=== PATIENT | male | born 1940 | race Caucasian/White ===

== ENCOUNTER 2016-06-14 19:10 | Emergency (ER) | payer OTHER ==
[~2016-06-14] VITALS: Ht 188 cm; Wt 95.3 kg
[2016-06-14 19:25] VITALS: BP_SYST 107
--- NOTE | 2016-06-14 19:30 | NUR ---
Placed in room 4 . Placed on bobbin fixer, blood pressure machine and pulse oximeter. To gown for exam. Side rails up. Report given to Annika GONZALEZ.
--- NOTE | 2016-06-14 19:44 | NUR ---
Pt came into the ER in stable condition. Pt c/o abd pain 10/03. Pt stated that he has intermittent dizziness. -n/v/d -sob -chest pain. No acute distress noted at this time, will continue to monitor
--- NOTE | 2016-06-14 20:01 | NUR ---
# 20 gauge angiocath placed to LEFT AC. Use of asceptic technique. Opsite placed over site. Blood return noted. Blood for lab drawn from site. Flushed with 10 cc of normal saline. No evidence of infiltration noted. Patient tolerated well.
[2016-06-14] MEDS ORDERED: NS 500 ML IV ONE (20:15)
[2016-06-14 20:47] LABS: BASOPHILS % (AUTO) 0.2 % (0.0-2.0); EOSINOPHILS % (AUTO) 0.1 % (0.0-4.0); HEMATOCRIT 43.8 % (36-54); HEMOGLOBIN 15.1 g/dL (14.0-18.0); LYMPHOCYTES # (AUTO) 0.7 K/uL (1.0-5.5); LYMPHOCYTES % (AUTO) 6.5 % (20.5-51.5); MEAN CORPUSCULAR HEMOGLOBIN 29 pg (27-31); MEAN CORPUSCULAR HGB CONC 34 % (32-36); MEAN CORPUSCULAR VOLUME 84 fL (79.0-98.0); MONOCYTES # (AUTO) 0.8 K/uL (0.0-1.0); MONOCYTES % (AUTO) 7.3 % (1.7-9.3); NEUTROPHILS # (AUTO) 8.9 K/uL (1.8-7.7); NEUTROPHILS % (AUTO) 85.9 % (40.0-70.0); PLATELET COUNT (AUTO) 147 K/uL (130-430); RED BLOOD CELL COUNT(AUTO) 5.19 MIL/uL (4.2-6.2); RED CELL DISTRIBUTION WIDTH 12.4 % (9.0-15.0); WHITE BLOOD COUNT (AUTO) 10.4 K/uL (4.8-10.8)
[2016-06-14 20:50] LABS: INR 1.2 (0.80-1.20); PROTHROMBIN TIME 12.6 SECS (9.5-12.5)
[2016-06-14 20:52] LABS: ALANINE AMINOTRANSFERASE 241 U/L (12-78); ALBUMIN 3.5 g/dL (3.4-4.8); ANION GAP 11 (5-15); ASPARTATE AMINOTRANSFERASE 71 U/L (10-37); CALCIUM 8.9 mg/dL (8.4-11.0); CHLORIDE 101 mmol/L (98-107); CREATININE 1.51 mg/dL (0.55-1.30); GLUCOSE 153 mg/dL (70-99); POTASSIUM 3.1 mmol/L (3.5-5.1); SODIUM SERUM 139 mmol/L (136-145); TOTAL BILIRUBIN 3.7 mg/dL (0.0-1.0); TOTAL PROTEIN, SERUM 6.9 g/dL (6.4-8.3); UREA NITROGEN, BLOOD 24 mg/dL (8-21)
[2016-06-14] MEDS ORDERED: POTASSIUM CHLORIDE 10 MEQ TAB.PRT.SR PO ONE (21:30)
[2016-06-14 22:52] VITALS: BP_SYST 109
--- NOTE | 2016-06-14 22:52 | NUR ---
Patient given written and verbal discharge instructions and verbalizes understanding. ER MD MCCORMACK discussed with patient the results and treatment provided. Patient in stable condition. ID arm band removed. IV catheter removed intact and dressing applied, no active bleeding. Rx of ASPIRIN given. Patient educated on pain management and to follow up with PMD. Pain Scale 0/10. Opportunity for questions provided and answered.
== END 2016-06-14 22:52 | disposition home or self-care (01) ==
LOC: SED 19:10
DX: R10.9 Unspecified abdominal pain (principal); R53.1 Weakness; R42 Dizziness and giddiness; R55 Syncope and collapse; I10 Essential (primary) hypertension
CPT/HCPCS: 36415; 74020; 74176; 80053; 84484; 85025; 85379; 85610; 85730; 96360; 99285; J7040

== ENCOUNTER 2021-10-31 12:05 | Inpatient (IN) | payer OTHER ==
[~2021-10-31] VITALS: Ht 188 cm; Wt 90.3 kg
[2021-10-31 12:08] VITALS: BP_SYST 116
[2021-10-31] MEDS ORDERED: cefTRIAXone 1 GM IVPB PREMIX 50 ML IV ONE (12:30)
[2021-10-31] MEDS ORDERED: NACL 0.9% 2,700 ML IV ONE (12:30)
[2021-10-31] MEDS ORDERED: METO25TA3 PO (12:40)
[2021-10-31] MEDS ORDERED: ASPI-859 PO (12:40)
[2021-10-31] MEDS ORDERED: [UNRECOGNIZED DRUG - OTHER] (12:40)
[2021-10-31] MEDS ORDERED: FURO-150 PO (12:40)
[2021-10-31] MEDS ORDERED: CYAN100T44 PO (12:40)
[2021-10-31] MEDS ORDERED: LIP80 PO (12:40)
[2021-10-31] MEDS ORDERED: IRBE150T48 PO (12:40)
[2021-10-31] MEDS ORDERED: VITD2000 PO (12:40)
[2021-10-31] MEDS ORDERED: POTA-197 PO (12:40)
[2021-10-31 13:01] LABS: BASOPHILS % (AUTO) 0.5 % (0.0-2.0); EOSINOPHILS % (AUTO) 0.6 % (0.0-4.0); HEMATOCRIT 38.3 % (36-54); HEMOGLOBIN 13.1 g/dL (14.0-18.0); LYMPHOCYTES # (AUTO) 0.9 K/uL (1.0-5.5); LYMPHOCYTES % (AUTO) 10.7 % (20.5-51.5); MEAN CORPUSCULAR HEMOGLOBIN 29 pg (27-31); MEAN CORPUSCULAR HGB CONC 34 % (32-36); MEAN CORPUSCULAR VOLUME 84 fL (79.0-98.0); MONOCYTES # (AUTO) 0.5 K/uL (0.0-1.0); MONOCYTES % (AUTO) 6.5 % (1.7-9.3); NEUTROPHILS # (AUTO) 6.8 K/uL (1.8-7.7); NEUTROPHILS % (AUTO) 81.7 % (40.0-70.0); PLATELET COUNT (AUTO) 171 K/uL (130-430); RED BLOOD CELL COUNT(AUTO) 4.57 MIL/uL (4.2-6.2); RED CELL DISTRIBUTION WIDTH 14.6 % (9.0-15.0); WHITE BLOOD COUNT (AUTO) 8.3 K/uL (4.8-10.8)
[2021-10-31 13:06] LABS: ANION GAP 9 (5-15); CALCIUM 8.9 mg/dL (8.4-11.0); CHLORIDE 105 mmol/L (98-107); CREATININE 1.36 mg/dL (0.55-1.30); GLUCOSE 165 mg/dL (70-99); SODIUM SERUM 141 mmol/L (136-145); UREA NITROGEN, BLOOD 25 mg/dL (8-21)
[2021-10-31 13:12] LABS: ALANINE AMINOTRANSFERASE 31 U/L (12-78); ALBUMIN 3.1 g/dL (3.4-4.8); ASPARTATE AMINOTRANSFERASE 20 U/L (10-37); TOTAL BILIRUBIN 1.9 mg/dL (0.0-1.0)
[2021-10-31 16:00] VITALS: BP_SYST 131
[2021-10-31 16:55] VITALS: BP_SYST 131
[2021-10-31 20:00] VITALS: BP_SYST 103
[2021-10-31 23:04] VITALS: BP_SYST 101
[2021-11-01 01:18] VITALS: BP_SYST 109
[2021-11-01 01:47] VITALS: BP_SYST 109
[2021-11-01 08:00] VITALS: BP_SYST 116
[2021-11-01] MEDS: FUROSEMIDE 40 MG/4 ML VIAL IVP SCH ×2 (09:52→22:10)
[2021-11-01] MEDS ORDERED: ACETAMINOPHEN 325 MG TABLET PO PRN (11:45)
[2021-11-01] MEDS ORDERED: NALOXONE HCL 0.4 MG/ML AMP (NARCAN) IVP PRN ×2 (11:45)
[2021-11-01] MEDS ORDERED: HYDROcodone/ACETAMIN 5-325 MG TAB (NORCO/ VICODIN) PO PRN (11:45)
[2021-11-01] MEDS ORDERED: HYDROcodone/ACETAMIN 10-325 MG TAB PO PRN (11:45)
[2021-11-01 12:00] VITALS: BP_SYST 115
[2021-11-01] MEDS: cefTRIAXone 1 GM IVPB PREMIX 50 ML IV SCH (13:11)
[2021-11-01] MEDS: D5/0.45 NS 1,000 ML IV SCH ×2 (13:11→22:34)
[2021-11-01 17:00] VITALS: BP_SYST 121
[2021-11-01 20:00] VITALS: BP_SYST 106
[2021-11-01] MEDS ORDERED: FUROSEMIDE 20 MG TABLET PO SCH (21:00)
[2021-11-01] MEDS: ATORVASTATIN 20 MG TABLET PO SCH (22:00)
[2021-11-01] MEDS: METOPROLOL SUCCINATE 25 MG TAB.SR.24H (TOPROL XL) PO SCH (22:09)
[2021-11-02] VITALS: BP_SYST 125
[2021-11-02 06:21] LABS: BASOPHILS # (AUTO) 0.1 K/uL (0.0-0.2); BASOPHILS % (AUTO) 0.5 % (0.0-2.0); EOSINOPHILS % (AUTO) 0.2 % (0.0-4.0); HEMATOCRIT 40.8 % (36-54); HEMOGLOBIN 13.9 g/dL (14.0-18.0); LYMPHOCYTES # (AUTO) 1.5 K/uL (1.0-5.5); LYMPHOCYTES % (AUTO) 14.7 % (20.5-51.5); MEAN CORPUSCULAR HEMOGLOBIN 29 pg (27-31); MEAN CORPUSCULAR HGB CONC 34 % (32-36); MEAN CORPUSCULAR VOLUME 84 fL (79.0-98.0); MONOCYTES # (AUTO) 0.7 K/uL (0.0-1.0); MONOCYTES % (AUTO) 7.2 % (1.7-9.3); NEUTROPHILS # (AUTO) 7.8 K/uL (1.8-7.7); NEUTROPHILS % (AUTO) 77.4 % (40.0-70.0); PLATELET COUNT (AUTO) 181 K/uL (130-430); RED BLOOD CELL COUNT(AUTO) 4.85 MIL/uL (4.2-6.2); RED CELL DISTRIBUTION WIDTH 14.1 % (9.0-15.0); WHITE BLOOD COUNT (AUTO) 10.1 K/uL (4.8-10.8)
[2021-11-02 06:49] LABS: ANION GAP 11 (5-15); CALCIUM 8.9 mg/dL (8.4-11.0); CHLORIDE 104 mmol/L (98-107); CREATININE 1.37 mg/dL (0.55-1.30); GLUCOSE 154 mg/dL (70-99); PHOSPHORUS 4.3 mg/dL (2.7-4.5); POTASSIUM 3.7 mmol/L (3.5-5.1); SODIUM SERUM 141 mmol/L (136-145); UREA NITROGEN, BLOOD 34 mg/dL (8-21)
[2021-11-02 08:00] VITALS: BP_SYST 119
[2021-11-02] MEDS: D5/0.45 NS 1,000 ML IV SCH ×2 (08:00→18:00)
[2021-11-02] MEDS: POTASSIUM CHLORIDE 20 MEQ TAB.PRT.SR PO SCH (09:35)
[2021-11-02] MEDS: CYANOCOBALAMIN 1000 mCg TABLET PO SCH (09:35)
[2021-11-02] MEDS: CHOLECALCIFEROL (VITAMIN D3) 2,000 UNIT TABLET PO SCH (09:35)
[2021-11-02] MEDS: LOSARTAN POTASSIUM 50 MG TABLET (COZAAR) PO SCH (09:36)
[2021-11-02] MEDS: FUROSEMIDE 40 MG/4 ML VIAL IVP SCH ×2 (09:37→21:25)
[2021-11-02] MEDS: ASPIRIN 81 MG TABLET(ECOTRIN) PO SCH (09:37)
[2021-11-02 12:00] VITALS: BP_SYST 124
[2021-11-02] MEDS: cefTRIAXone 1 GM IVPB PREMIX 50 ML IV SCH (14:37)
[2021-11-02] MEDS: ONDANSETRON HCL 4 MG/2 ML VIAL IVP PRN (15:33)
[2021-11-02 16:00] VITALS: BP_SYST 118
[2021-11-02 20:00] VITALS: BP_SYST 104
[2021-11-02] MEDS: METOPROLOL SUCCINATE 25 MG TAB.SR.24H (TOPROL XL) PO SCH (21:00)
[2021-11-02] MEDS: ATORVASTATIN 20 MG TABLET PO SCH (21:21)
[2021-11-03] MEDS: D5/0.45 NS 1,000 ML IV SCH ×2 (00:18→14:48)
[2021-11-03 00:44] VITALS: BP_SYST 108
[2021-11-03 04:00] VITALS: BP_SYST 100
[2021-11-03 06:34] LABS: BASOPHILS # (AUTO) 0.1 K/uL (0.0-0.2); BASOPHILS % (AUTO) 0.7 % (0.0-2.0); EOSINOPHILS # (AUTO) 0.1 K/uL (0.0-0.4); HEMATOCRIT 37.8 % (36-54); HEMOGLOBIN 13.1 g/dL (14.0-18.0); LYMPHOCYTES % (AUTO) 23.5 % (20.5-51.5); MEAN CORPUSCULAR HEMOGLOBIN 29 pg (27-31); MEAN CORPUSCULAR HGB CONC 35 % (32-36); MEAN CORPUSCULAR VOLUME 83 fL (79.0-98.0); MONOCYTES # (AUTO) 0.6 K/uL (0.0-1.0); MONOCYTES % (AUTO) 7.1 % (1.7-9.3); NEUTROPHILS # (AUTO) 5.9 K/uL (1.8-7.7); NEUTROPHILS % (AUTO) 67.7 % (40.0-70.0); PLATELET COUNT (AUTO) 151 K/uL (130-430); RED BLOOD CELL COUNT(AUTO) 4.55 MIL/uL (4.2-6.2); RED CELL DISTRIBUTION WIDTH 14.1 % (9.0-15.0); WHITE BLOOD COUNT (AUTO) 8.7 K/uL (4.8-10.8)
[2021-11-03] MEDS: LOSARTAN POTASSIUM 50 MG TABLET (COZAAR) PO SCH (09:00)
[2021-11-03] MEDS: FUROSEMIDE 40 MG/4 ML VIAL IVP SCH ×2 (09:00→21:58)
[2021-11-03] MEDS: CYANOCOBALAMIN 1000 mCg TABLET PO SCH (09:01)
[2021-11-03] MEDS: CHOLECALCIFEROL (VITAMIN D3) 2,000 UNIT TABLET PO SCH (09:02)
[2021-11-03] MEDS: POTASSIUM CHLORIDE 20 MEQ TAB.PRT.SR PO SCH (09:02)
[2021-11-03] MEDS: ASPIRIN 81 MG TABLET(ECOTRIN) PO SCH (09:02)
[2021-11-03 09:23] LABS: ALANINE AMINOTRANSFERASE 29 U/L (12-78); ANION GAP 7 (5-15); ASPARTATE AMINOTRANSFERASE 13 U/L (10-37); C-REACTIVE PROTEIN QUANT 0.2 mg/dL (0-0.5); CALCIUM 8.2 mg/dL (8.4-11.0); CHLORIDE 104 mmol/L (98-107); CREATININE 1.36 mg/dL (0.55-1.30); GLUCOSE 139 mg/dL (70-99); PHOSPHORUS 4.4 mg/dL (2.7-4.5); POTASSIUM 3.8 mmol/L (3.5-5.1); SODIUM SERUM 139 mmol/L (136-145); TOTAL BILIRUBIN 0.6 mg/dL (0.0-1.0); UREA NITROGEN, BLOOD 36 mg/dL (8-21)
[2021-11-03 09:40] LABS: ERYTHROCYTE SEDIMENTATION RATE 10 MM/HR (0-15)
[2021-11-03 12:07] VITALS: BP_SYST 104
[2021-11-03] MEDS: cefTRIAXone 1 GM IVPB PREMIX 50 ML IV SCH (13:00)
[2021-11-03 16:13] VITALS: BP_SYST 113
[2021-11-03 19:00] VITALS: BP_SYST 112
[2021-11-03 20:00] VITALS: BP_SYST 112
[2021-11-03] MEDS: METOPROLOL SUCCINATE 25 MG TAB.SR.24H (TOPROL XL) PO SCH (21:00)
[2021-11-03] MEDS: DOCUSATE SODIUM 100 MG CAPSULE PO SCH (21:56)
[2021-11-03] MEDS: ATORVASTATIN 20 MG TABLET PO SCH (21:56)
[2021-11-03] MEDS: ONDANSETRON HCL 4 MG/2 ML VIAL IVP PRN (21:57)
[2021-11-04 00:42] VITALS: BP_SYST 110
[2021-11-04 04:00] VITALS: BP_SYST 99
[2021-11-04 06:32] LABS: BASOPHILS # (AUTO) 0.1 K/uL (0.0-0.2); EOSINOPHILS # (AUTO) 0.1 K/uL (0.0-0.4); EOSINOPHILS % (AUTO) 1.5 % (0.0-4.0); HEMATOCRIT 37.8 % (36-54); LYMPHOCYTES # (AUTO) 1.6 K/uL (1.0-5.5); LYMPHOCYTES % (AUTO) 18.3 % (20.5-51.5); MEAN CORPUSCULAR HEMOGLOBIN 29 pg (27-31); MEAN CORPUSCULAR HGB CONC 34 % (32-36); MEAN CORPUSCULAR VOLUME 83 fL (79.0-98.0); MONOCYTES # (AUTO) 0.7 K/uL (0.0-1.0); MONOCYTES % (AUTO) 7.9 % (1.7-9.3); NEUTROPHILS # (AUTO) 6.2 K/uL (1.8-7.7); NEUTROPHILS % (AUTO) 71.3 % (40.0-70.0); PLATELET COUNT (AUTO) 143 K/uL (130-430); RED BLOOD CELL COUNT(AUTO) 4.54 MIL/uL (4.2-6.2); RED CELL DISTRIBUTION WIDTH 14.3 % (9.0-15.0); WHITE BLOOD COUNT (AUTO) 8.6 K/uL (4.8-10.8)
[2021-11-04 07:05] LABS: ANION GAP 9 (5-15); CALCIUM 8.2 mg/dL (8.4-11.0); CHLORIDE 103 mmol/L (98-107); CREATININE 1.35 mg/dL (0.55-1.30); GLUCOSE 138 mg/dL (70-99); PHOSPHORUS 4.5 mg/dL (2.7-4.5); POTASSIUM 3.7 mmol/L (3.5-5.1); SODIUM SERUM 140 mmol/L (136-145); UREA NITROGEN, BLOOD 35 mg/dL (8-21)
[2021-11-04] MEDS: D5/0.45 NS 1,000 ML IV SCH ×2 (07:20)
[2021-11-04 07:23] LABS: C-REACTIVE PROTEIN QUANT < 0.2 mg/dL (0-0.5)
[2021-11-04] MEDS: FUROSEMIDE 40 MG/4 ML VIAL IVP SCH (09:00)
[2021-11-04] MEDS: LOSARTAN POTASSIUM 50 MG TABLET (COZAAR) PO SCH (09:00)
[2021-11-04] MEDS: DOCUSATE SODIUM 100 MG CAPSULE PO SCH (09:33)
[2021-11-04] MEDS: CHOLECALCIFEROL (VITAMIN D3) 2,000 UNIT TABLET PO SCH (09:34)
[2021-11-04] MEDS: ASPIRIN 81 MG TABLET(ECOTRIN) PO SCH (09:35)
[2021-11-04] MEDS: POTASSIUM CHLORIDE 20 MEQ TAB.PRT.SR PO SCH (09:35)
[2021-11-04] MEDS: CYANOCOBALAMIN 1000 mCg TABLET PO SCH (09:36)
[2021-11-04 12:11] LABS: ERYTHROCYTE SEDIMENTATION RATE 2 MM/HR (0-15)
[2021-11-04 12:23] VITALS: BP_SYST 114
[2021-11-04] MEDS ORDERED: FURO40TA5 PO (12:25)
[2021-11-04] MEDS ORDERED: DOCU-144 PO (12:25)
[2021-11-04] MEDS ORDERED: APIX5TAB PO (12:25)
[2021-11-04] MEDS: cefTRIAXone 1 GM IVPB PREMIX 50 ML IV SCH (12:59)
[2021-11-04 16:00] VITALS: BP_SYST 119
[2021-11-04 16:21] VITALS: BP_SYST 119
[2021-11-04 18:52] VITALS: BP_SYST 111
== END 2021-11-04 20:44 | disposition home health service (06) | DRG 871 ==
LOC: SED 12:05 → STU 13:41
PROVIDERS: ADMIT Preventive Medicine Preventive Medicine/Occupational Environmental Medicine; ATTEND Preventive Medicine Preventive Medicine/Occupational Environmental Medicine
DX: A41.9 Sepsis, unspecified organism (principal); I50.43 Acute on chronic combined systolic (congestive) and diastolic (congestive) heart failure; J18.9 Pneumonia, unspecified organism; J96.00 Acute respiratory failure, unspecified whether with hypoxia or hypercapnia; E44.0 Moderate protein-calorie malnutrition; E87.2 Acidosis; N17.9 Acute kidney failure, unspecified; I13.0 Hypertensive heart and chronic kidney disease with heart failure and stage 1 through stage 4 chronic kidney disease, or unspecified chronic kidney disease; I25.10 Atherosclerotic heart disease of native coronary artery without angina pectoris; I35.1 Nonrheumatic aortic (valve) insufficiency; E78.5 Hyperlipidemia, unspecified; E88.09 Other disorders of plasma-protein metabolism, not elsewhere classified; E80.6 Other disorders of bilirubin metabolism; Z20.822 Contact with and (suspected) exposure to COVID-19; N18.31 Chronic kidney disease, stage 3a; E11.22 Type 2 diabetes mellitus with diabetic chronic kidney disease; E83.52 Hypercalcemia; Z91.010 Allergy to peanuts; Z91.013 Allergy to seafood; Z68.25 Body mass index [BMI] 25.0-25.9, adult
CPT/HCPCS: 36415; 36600; 71045; 76770; 80048; 80053; 82803-TC; 83605; 83735; 83880; 84100; 85025; 85651-TC; 86140; 87040; 87081; 93005; 93306; 93970; 96374; 96375; 97116-GP; 97530-GP; 99291; G0378; J0696; J1940; J1956; J2405

== ENCOUNTER 2021-11-08 07:27 | Inpatient (IN) | payer OTHER ==
[~2021-11-08] VITALS: Ht 188 cm; Wt 102.5 kg
[~2021-11-08 07:27] MED LIST: APIX5TAB PO; CYAN100T44 PO; DOCU-144 PO; FURO-150 PO; FURO40TA5 PO; IRBE150T48 PO; LIP80 PO; METO25TA3 PO; POTA-197 PO; VITD2000 PO; [UNRECOGNIZED DRUG - OTHER]
[2021-11-08 07:35] VITALS: BP_SYST 107
[2021-11-08] MEDS ORDERED: NITROGLYCERIN 0.4 MG TAB.SUBL SL ONE (08:15)
[2021-11-08] MEDS ORDERED: FUROSEMIDE 40 MG/4 ML VIAL IVP ONE (08:15)
[2021-11-08 08:18] LABS: BASOPHILS # (AUTO) 0.1 K/uL (0.0-0.2); BASOPHILS % (AUTO) 0.5 % (0.0-2.0); EOSINOPHILS % (AUTO) 0.2 % (0.0-4.0); HEMATOCRIT 41.2 % (36-54); HEMOGLOBIN 14.1 g/dL (14.0-18.0); LYMPHOCYTES # (AUTO) 1.3 K/uL (1.0-5.5); LYMPHOCYTES % (AUTO) 9.9 % (20.5-51.5); MEAN CORPUSCULAR HEMOGLOBIN 29 pg (27-31); MEAN CORPUSCULAR HGB CONC 34 % (32-36); MEAN CORPUSCULAR VOLUME 86 fL (79.0-98.0); MONOCYTES # (AUTO) 0.8 K/uL (0.0-1.0); MONOCYTES % (AUTO) 6.5 % (1.7-9.3); NEUTROPHILS # (AUTO) 10.6 K/uL (1.8-7.7); NEUTROPHILS % (AUTO) 82.9 % (40.0-70.0); PLATELET COUNT (AUTO) 184 K/uL (130-430); RED BLOOD CELL COUNT(AUTO) 4.81 MIL/uL (4.2-6.2); RED CELL DISTRIBUTION WIDTH 15.3 % (9.0-15.0); WHITE BLOOD COUNT (AUTO) 12.8 K/uL (4.8-10.8)
[2021-11-08 08:53] LABS: ANION GAP 16 (5-15); CALCIUM 8.7 mg/dL (8.4-11.0); CHLORIDE 101 mmol/L (98-107); CREATININE 1.91 mg/dL (0.55-1.30); GLUCOSE 187 mg/dL (70-99); POTASSIUM 3.9 mmol/L (3.5-5.1); SODIUM SERUM 139 mmol/L (136-145); UREA NITROGEN, BLOOD 47 mg/dL (8-21)
[2021-11-08 08:56] LABS: INR 1.5 (0.80-1.20); PROTHROMBIN TIME 14.9 SECS (9.5-12.5)
[2021-11-08 09:02] LABS: ALANINE AMINOTRANSFERASE 74 U/L (12-78); ALBUMIN 3.2 g/dL (3.4-4.8); ASPARTATE AMINOTRANSFERASE 36 U/L (10-37); LIPASE 116 U/L (73-393); PHOSPHORUS 5.3 mg/dL (2.7-4.5); TOTAL BILIRUBIN 1.2 mg/dL (0.0-1.0)
[2021-11-08] MEDS ORDERED: DOXYCYCLINE HYCLATE 100 MG CAPSULE PO ONE (10:30)
[2021-11-08] MEDS ORDERED: cefTRIAXone 1 GM IVPB PREMIX 50 ML IV ONE (10:30)
[2021-11-08] MEDS ORDERED: ASPIRIN 325 MG TABLET PO ONE (10:30)
[2021-11-08] MEDS: FUROSEMIDE 20 MG TABLET PO SCH (10:45)
[2021-11-08] MEDS ORDERED: SPIRONOLACTONE 25 MG TABLET (ALDACTONE) PO ONE (14:45)
[2021-11-08] MEDS ORDERED: METOPROLOL SUCCINATE 25 MG TAB.SR.24H (TOPROL XL) PO SCH (21:00)
[2021-11-08] MEDS: DOCUSATE SODIUM 100 MG CAPSULE PO SCH (21:05)
[2021-11-08] MEDS: ATORVASTATIN 20 MG TABLET PO SCH (21:05)
[2021-11-08] MEDS: SPIRONOLACTONE 25 MG TABLET (ALDACTONE) PO SCH (21:06)
[2021-11-08] MEDS: CARVEDILOL 6.25 MG TABLET (COREG) PO SCH (21:07)
[2021-11-09] VITALS (18 sets, daily range): BP systolic 86–152
[2021-11-09] MEDS: FUROSEMIDE 20 MG TABLET PO SCH (03:33)
[2021-11-09 06:23] LABS: ANION GAP 14 (5-15); CALCIUM 9.2 mg/dL (8.4-11.0); CHLORIDE 99 mmol/L (98-107); CREATININE 2.34 mg/dL (0.55-1.30); GLUCOSE 179 mg/dL (70-99); POTASSIUM 4.7 mmol/L (3.5-5.1); SODIUM SERUM 137 mmol/L (136-145); UREA NITROGEN, BLOOD 61 mg/dL (8-21)
[2021-11-09 06:27] LABS: INR 1.6 (0.80-1.20); PROTHROMBIN TIME 16.3 SECS (9.5-12.5)
[2021-11-09 06:38] LABS: ALANINE AMINOTRANSFERASE 163 U/L (12-78); ALBUMIN 3.3 g/dL (3.4-4.8); ASPARTATE AMINOTRANSFERASE 104 U/L (10-37); TOTAL BILIRUBIN 1.9 mg/dL (0.0-1.0)
[2021-11-09 07:02] LABS: BASOPHILS % (AUTO) 0.3 % (0.0-2.0); HEMATOCRIT 42.9 % (36-54); HEMOGLOBIN 14.7 g/dL (14.0-18.0); LYMPHOCYTES # (AUTO) 1.5 K/uL (1.0-5.5); LYMPHOCYTES % (AUTO) 11.5 % (20.5-51.5); MEAN CORPUSCULAR HEMOGLOBIN 29 pg (27-31); MEAN CORPUSCULAR HGB CONC 34 % (32-36); MEAN CORPUSCULAR VOLUME 85 fL (79.0-98.0); MONOCYTES # (AUTO) 0.9 K/uL (0.0-1.0); MONOCYTES % (AUTO) 6.7 % (1.7-9.3); NEUTROPHILS # (AUTO) 10.4 K/uL (1.8-7.7); NEUTROPHILS % (AUTO) 81.5 % (40.0-70.0); PLATELET COUNT (AUTO) 193 K/uL (130-430); RED BLOOD CELL COUNT(AUTO) 5.06 MIL/uL (4.2-6.2); RED CELL DISTRIBUTION WIDTH 15.4 % (9.0-15.0); WHITE BLOOD COUNT (AUTO) 12.7 K/uL (4.8-10.8)
[2021-11-09] MEDS ORDERED: LOSARTAN POTASSIUM 25 MG TABLET PO SCH (09:00)
[2021-11-09] MEDS ORDERED: metOLazone 5 MG TABLET PO SCH (09:00)
[2021-11-09] MEDS: SPIRONOLACTONE 25 MG TABLET (ALDACTONE) PO SCH (09:04)
[2021-11-09] MEDS: DOCUSATE SODIUM 100 MG CAPSULE PO SCH ×2 (09:04→20:07)
[2021-11-09] MEDS: CARVEDILOL 6.25 MG TABLET (COREG) PO SCH ×2 (09:05→20:06)
[2021-11-09] MEDS: FUROSEMIDE 40 MG/4 ML VIAL IVP SCH ×2 (09:06→20:07)
[2021-11-09 09:29] LABS: CHOLESTEROL 102 mg/dL (<200); HDL CHOLESTEROL 40 mg/dL (>45); LDL CHOLESTEROL 53 mg/dL (<100); TRIGLYCERIDES 62 mg/dL (30-150)
[2021-11-09] MEDS ORDERED: ALBUMIN HUMAN 25% 50 ML IV ONE (11:15)
[2021-11-09] MEDS: ALBUMIN HUMAN 25% 50 ML IV SCH ×3 (11:20→23:11)
[2021-11-09] MEDS ORDERED: NS 250 ML IV ONE (11:45)
[2021-11-09] MEDS ORDERED: NOREPINEPHRINE BITARTRATE 4 MG in D5W 246 ML IV PRN (13:00)
[2021-11-09] MEDS ORDERED: NOREPINEPHRINE BITARTRATE 16 MG in D5W 234 ML IV PRN (13:30)
[2021-11-09] MEDS ORDERED: HYDROCORTISONE SOD SUCC 100 MG/2 ML VIAL IVP ONE (15:30)
[2021-11-09] MEDS ORDERED: NS 500 ML IV ONE ×2 (15:30→18:00)
[2021-11-09] MEDS: HYDROCORTISONE SOD SUCC 100 MG/2 ML VIAL IVP SCH (16:45)
[2021-11-09] MEDS ORDERED: VANCOMYCIN HCL 1,000 MG in NS 250 ML IV SCH (17:00)
[2021-11-09] MEDS: MEROPENEM 500 MG in NS 50 ML IV SCH (17:09)
[2021-11-09] MEDS: VANCOMYCIN HCL 1,000 MG in NS 250 ML IV SCH (17:50)
[2021-11-09] MEDS: ATORVASTATIN 20 MG TABLET PO SCH (20:06)
[2021-11-10] VITALS (24 sets, daily range): BP systolic 91–127
[2021-11-10] MEDS: HYDROCORTISONE SOD SUCC 100 MG/2 ML VIAL IVP SCH ×3 (00:25→16:40)
[2021-11-10] MEDS: MEROPENEM 500 MG in NS 50 ML IV SCH ×2 (04:14→16:41)
[2021-11-10] MEDS ORDERED: MEROPENEM 500 MG VIAL IV ONE (04:30)
[2021-11-10 06:27] LABS: BASOPHILS % (AUTO) 0.1 % (0.0-2.0); HEMATOCRIT 39.2 % (36-54); HEMOGLOBIN 13.5 g/dL (14.0-18.0); LYMPHOCYTES # (AUTO) 1.2 K/uL (1.0-5.5); LYMPHOCYTES % (AUTO) 7.3 % (20.5-51.5); MEAN CORPUSCULAR HEMOGLOBIN 29 pg (27-31); MEAN CORPUSCULAR HGB CONC 35 % (32-36); MEAN CORPUSCULAR VOLUME 85 fL (79.0-98.0); MONOCYTES % (AUTO) 6.1 % (1.7-9.3); NEUTROPHILS # (AUTO) 13.8 K/uL (1.8-7.7); NEUTROPHILS % (AUTO) 86.5 % (40.0-70.0); PLATELET COUNT (AUTO) 192 K/uL (130-430); RED BLOOD CELL COUNT(AUTO) 4.64 MIL/uL (4.2-6.2); RED CELL DISTRIBUTION WIDTH 15.7 % (9.0-15.0)
[2021-11-10 06:55] LABS: ALANINE AMINOTRANSFERASE 160 U/L (12-78); ALBUMIN 3.1 g/dL (3.4-4.8); ANION GAP 13 (5-15); ASPARTATE AMINOTRANSFERASE 85 U/L (10-37); CALCIUM 8.4 mg/dL (8.4-11.0); CHLORIDE 101 mmol/L (98-107); CREATININE 2.09 mg/dL (0.55-1.30); GLUCOSE 160 mg/dL (70-99); LIPASE 144 U/L (73-393); POTASSIUM 3.5 mmol/L (3.5-5.1); SODIUM SERUM 139 mmol/L (136-145); TOTAL BILIRUBIN 1.5 mg/dL (0.0-1.0); UREA NITROGEN, BLOOD 66 mg/dL (8-21)
[2021-11-10] MEDS: CARVEDILOL 6.25 MG TABLET (COREG) PO SCH ×2 (09:00→20:23)
[2021-11-10] MEDS ORDERED: FUROSEMIDE 40 MG TABLET PO ONE (10:00)
[2021-11-10] MEDS: DOCUSATE SODIUM 100 MG CAPSULE PO SCH ×2 (10:11→20:22)
[2021-11-10] MEDS: VANCOMYCIN HCL 1,000 MG in NS 250 ML IV SCH (17:47)
[2021-11-10] MEDS: ATORVASTATIN 20 MG TABLET PO SCH (20:23)
[2021-11-11] VITALS (20 sets, daily range): BP systolic 85–118
[2021-11-11] MEDS: HYDROCORTISONE SOD SUCC 100 MG/2 ML VIAL IVP SCH ×3 (00:29→16:26)
[2021-11-11] MEDS: MEROPENEM 500 MG in NS 50 ML IV SCH ×2 (04:33→16:26)
[2021-11-11 06:31] LABS: BASOPHILS % (AUTO) 0.2 % (0.0-2.0); HEMATOCRIT 40.4 % (36-54); HEMOGLOBIN 13.8 g/dL (14.0-18.0); LYMPHOCYTES # (AUTO) 1.3 K/uL (1.0-5.5); MEAN CORPUSCULAR HEMOGLOBIN 29 pg (27-31); MEAN CORPUSCULAR HGB CONC 34 % (32-36); MEAN CORPUSCULAR VOLUME 85 fL (79.0-98.0); MONOCYTES % (AUTO) 6.1 % (1.7-9.3); NEUTROPHILS # (AUTO) 14.1 K/uL (1.8-7.7); NEUTROPHILS % (AUTO) 85.7 % (40.0-70.0); PLATELET COUNT (AUTO) 153 K/uL (130-430); RED BLOOD CELL COUNT(AUTO) 4.78 MIL/uL (4.2-6.2); RED CELL DISTRIBUTION WIDTH 15.6 % (9.0-15.0); WHITE BLOOD COUNT (AUTO) 16.5 K/uL (4.8-10.8)
[2021-11-11 06:43] LABS: ALANINE AMINOTRANSFERASE 184 U/L (12-78); ALBUMIN 3.1 g/dL (3.4-4.8); ANION GAP 14 (5-15); ASPARTATE AMINOTRANSFERASE 93 U/L (10-37); CALCIUM 8.5 mg/dL (8.4-11.0); CHLORIDE 99 mmol/L (98-107); CREATININE 2.54 mg/dL (0.55-1.30); GLUCOSE 171 mg/dL (70-99); LIPASE 242 U/L (73-393); POTASSIUM 3.8 mmol/L (3.5-5.1); SODIUM SERUM 137 mmol/L (136-145); TOTAL BILIRUBIN 1.4 mg/dL (0.0-1.0); UREA NITROGEN, BLOOD 80 mg/dL (8-21)
[2021-11-11] MEDS: APIXABAN 2.5 MG TABLET PO SCH (08:50)
[2021-11-11] MEDS: CARVEDILOL 6.25 MG TABLET (COREG) PO SCH ×2 (08:51→21:00)
[2021-11-11] MEDS: DOCUSATE SODIUM 100 MG CAPSULE PO SCH (08:51)
[2021-11-11] MEDS ORDERED: FUROSEMIDE 40 MG TABLET PO SCH ×2 (09:00→21:00)
[2021-11-11] MEDS: VANCOMYCIN HCL 1,000 MG in NS 250 ML IV SCH (17:56)
[2021-11-12] MEDS: DOCUSATE SODIUM 100 MG CAPSULE PO SCH (00:17)
[2021-11-12] MEDS: ATORVASTATIN 20 MG TABLET PO SCH (00:17)
[2021-11-12] MEDS: APIXABAN 2.5 MG TABLET PO SCH (00:25)
[2021-11-12] MEDS: HYDROCORTISONE SOD SUCC 100 MG/2 ML VIAL IVP SCH (00:40)
[2021-11-12] MEDS ORDERED: SODIUM BICARBONATE 8.4% JECT 50 MEQ/50 ML SYRINGE IVP ONE (02:29)
[2021-11-12] MEDS ORDERED: EPINEPHrine JECT 0.1 MG/ML SYR IVP ONE (02:29)
[2021-11-12] MEDS ORDERED: CALCIUM CHLORIDE 1 GM/10 ML DISP.SYRIN (14 mEq Ca++/SYR) IV ONE (02:29)
[2021-11-12] MEDS ORDERED: DEXTROSE 50% JECT 50 ML DISP.SYRIN IVP ONE (02:29)
== END 2021-11-12 02:30 | DRG 871 ==
LOC: SED 07:27 → SMU 10:42 → STU 15:21 → SIC 11-09 11:49 → STU 11-11 19:52
PROVIDERS: ADMIT Specialist; ATTEND Specialist
PROC: 5A12012 Performance of Cardiac Output, Single, Manual (ICD-10-PCS; principal; 2021-11-12)
PROC: 3E0A3GC Introduction of Other Therapeutic Substance into Bone Marrow, Percutaneous Approach (ICD-10-PCS; 2021-11-12)
PROC: 0BH17EZ Insertion of Endotracheal Airway into Trachea, Via Natural or Artificial Opening (ICD-10-PCS; 2021-11-12)
DX: A41.9 Sepsis, unspecified organism (principal); I21.4 Non-ST elevation (NSTEMI) myocardial infarction; J18.9 Pneumonia, unspecified organism; R65.21 Severe sepsis with septic shock; J96.21 Acute and chronic respiratory failure with hypoxia; I13.0 Hypertensive heart and chronic kidney disease with heart failure and stage 1 through stage 4 chronic kidney disease, or unspecified chronic kidney disease; N18.4 Chronic kidney disease, stage 4 (severe); I50.40 Unspecified combined systolic (congestive) and diastolic (congestive) heart failure; N17.9 Acute kidney failure, unspecified; I42.0 Dilated cardiomyopathy; I25.10 Atherosclerotic heart disease of native coronary artery without angina pectoris; I27.20 Pulmonary hypertension, unspecified; I46.9 Cardiac arrest, cause unspecified; E78.5 Hyperlipidemia, unspecified; I48.0 Paroxysmal atrial fibrillation; Z79.899 Other long term (current) drug therapy; Z79.01 Long term (current) use of anticoagulants; Z95.3 Presence of xenogenic heart valve; Z86.718 Personal history of other venous thrombosis and embolism; Z95.5 Presence of coronary angioplasty implant and graft; Z79.82 Long term (current) use of aspirin
CPT/HCPCS: 36415; 71045; 80053; 80061; 82550; 82962; 83605; 83690; 83735; 83880; 84100; 84443; 84484; 85025; 85610-TC; 85730-TC; 87040; 87086; 93005; 96365; 96375; 99291; G0378; J0171; J0696; J1720; J1940; J2185; J3370; J7050; J7060; P9046